=== PATIENT | male | born 1990 | race Caucasian/White ===

== ENCOUNTER 2025-07-13 20:58 | Emergency (ER) | payer MEDICAID ==
[~2025-07-13] VITALS: Ht 172.7 cm; Wt 85.5 kg
[2025-07-13 21:36] VITALS: TEMP 97.9
[2025-07-13 21:49] LABS: PLATELET COUNT (AUTO) 321 K/uL (150-450); RED BLOOD CELL COUNT(AUTO) 4.49 MIL/uL (4.50-5.90); RED CELL DISTRIBUTION WIDTH 14.7 % (11.5-14.5); WHITE BLOOD COUNT (AUTO) 7.7 K/uL (4.5-11.0)
[2025-07-13 21:55] LABS: COVID AG,FIA SOURCE NASAL SWAB
[2025-07-13 21:58] LABS: CALCIUM, TOTAL 8.6 mg/dL (8.8-10.5); CREATININE 0.77 mg/dL (0.60-1.30); GLOMERULAR FILTR. RATE CALC > 60 mL/min (>60); GLUCOSE,RANDOM 107 mg/dL (70-110); SODIUM SERUM 137 mmol/L (136-145); UREA NITROGEN, BLOOD 7 mg/dL (7-18)
[2025-07-13 21:59] LABS: PH,URINE DRUG SCREEN 6.5 (5.0-8.0)
[2025-07-13 22:04] LABS: ALCOHOL, URINE DRUG SCREEN POSITIVE (NEGATIVE); AMPHET/METH SCREEN,URINE NEGATIVE (NEGATIVE); BARBITURATE SCREEN, URINE NEGATIVE (NEGATIVE); CANNABINOID SCREEN,URINE NEGATIVE (NEGATIVE); COCAINE SCREEN,URINE NEGATIVE (NEGATIVE); METHADONE SCREEN, URINE NEGATIVE (NEGATIVE)
[2025-07-13 22:16] LABS: SARS-COV2 (COVID) ANTIGEN,FIA Negative (Negative)
[2025-07-14 02:30] VITALS: BP 128/84; PULSE 85; RESP 16; O2SAT 100
== END 2025-07-14 03:00 | disposition home or self-care (01) ==
LOC: EMS 20:58
DX: F32.9 Major depressive disorder, single episode, unspecified (principal); F10.129 Alcohol abuse with intoxication, unspecified; R45.851 Suicidal ideations; R44.3 Hallucinations, unspecified; Z88.0 Allergy status to penicillin; Z20.822 Contact with and (suspected) exposure to COVID-19; Y90.8 Blood alcohol level of 240 mg/100 ml or more
CPT/HCPCS: 99283; 87426; 80048; 85025; 36415; 80307; G0480